=== PATIENT | male | born 1990 ===

== ENCOUNTER 2021-09-28 19:45 | Emergency (ER) | payer SELFPAY ==
[2021-09-28] MEDS ORDERED: Lidocaine 1% 30 ML SDV INJECT ONE (20:52)
== END 2021-09-28 21:20 | disposition home or self-care (01) ==
LOC: DL.ED 19:45
DX: S01.21XA Laceration without foreign body of nose, initial encounter (principal); Z88.0 Allergy status to penicillin; W64.XXXA Exposure to other animate mechanical forces, initial encounter
CPT/HCPCS: 12011; 99283